=== PATIENT | male | born 1945 | race Caucasian/White ===

== ENCOUNTER 2016-04-16 02:51 | Inpatient (IN) | payer MEDICARE, MEDICAID ==
[2016-04-16] VITALS (20 sets, daily range): BP systolic 94–126; BP diastolic 44–68; PULSE 92–102; RESP 18–30; TEMP 98.1–98.7; O2SAT 94–100
[~2016-04-16] VITALS: Ht 167.6 cm; Wt 67.2 kg
[~2016-04-16 02:51] MED LIST: BENZ100 PO; DUONI NEB; GABA100C4 PO; LACT10SO27 PO; LEVE500 PO; LISI5 PO; OMEP20TA PO; OXYC1SOL5 PO; PARO40TA PO; SARNLOT TOP; SENN8.6T19 PO; STRETAB PO; TAMS0.4C4 PO; XYZA5TAB2 PO; [UNRECOGNIZED DRUG - CODE] EX
[2016-04-16] MEDS ORDERED: SODIUM CHLORIDE 0.9% FLUSH 5 ML FLUSH IVF PRN (03:00)
[2016-04-16] MEDS ORDERED: cefTRIAXone INJ 1,000 MG in SODIUM CHLORIDE 0.9% INJ 100 ML IV ONE (03:00)
[2016-04-16] MEDS ORDERED: AZITHROMYCIN 250 MG TAB PO ONE (03:00)
[2016-04-16] MEDS ORDERED: FUROSEMIDE 40 MG/4 ML VIAL IVP ONE (03:00)
[2016-04-16 03:18] LABS: BLOOD GAS BASE EXCESS -1.9 mmol/L (-2-2); BLOOD GAS CARBOXYHEMOGLOBIN 3.8 % (0-4); BLOOD GAS HCO3 24 mmol/L (22-26); BLOOD GAS METHEMOGLOBIN 2.2 % (0-2); BLOOD GAS O2 HGB SATURATION 94 % (90-100); BLOOD GAS OXYGEN CONTENT 6.8 Vol % (12.0-20.0); BLOOD GAS PCO2 53 mmHg (38-42); BLOOD GAS PO2 145 mmHG (61-120); BLOOD GAS TOTAL HGB 4.9 G/DL (12.0-16.0); TEMP CORR TO 98.6
[2016-04-16 03:19] LABS: CRITICAL VALUE YES; DRAW SITE RT RADIAL; FIO2 40 %; NUMBER OF ARTERIAL PUNCTURES 1; STAT YES; ULNAR PULSE PRESENT
[2016-04-16 03:20] LABS: OXYGEN DEVICE BiPAP
[2016-04-16 03:31] LABS: AUTOMATED NEUTROPHIL # 5.1 TH/MM3 (1.8-7.7); BASOPHIL % 0.2 % (0.0-2.0); EOSINOPHIL % 0.2 % (0.0-4.0); LYMPH % 3.7 % (9.0-44.0); LYMPHOCYTE # 0.3 TH/MM3 (1.0-4.8); MEAN CELL VOLUME 102.6 FL (80.0-100.0); MEAN CORPUSCULAR HEMOGLOBIN 31.5 PG (27.0-34.0); MEAN CORPUSCULAR HGB CONC 30.7 % (32.0-36.0); MONO % 20.4 % (0.0-8.0); NEUT % 75.5 % (16.0-70.0); PLATELET COUNT 42 TH/MM3 (150-450); RED BLOOD COUNT 1.68 MIL/MM3 (4.50-5.90); RED CELL DISTRIBUTION WIDTH 27.7 % (11.6-17.2); WHITE BLOOD COUNT 6.8 TH/MM3 (4.0-11.0)
[2016-04-16] MEDS ORDERED: PERC5TAB12 PO (03:41)
[2016-04-16] MEDS ORDERED: OMEP20TA PO (03:41)
[2016-04-16] MEDS ORDERED: PARO40TA2 PO (03:41)
[2016-04-16] MEDS ORDERED: LOPE2CAP PO (03:41)
[2016-04-16] MEDS ORDERED: LEVE500T8 PO (03:41)
[2016-04-16] MEDS ORDERED: GABA100C4 PO (03:41)
[2016-04-16] MEDS ORDERED: LACT10SO PO (03:41)
[2016-04-16] MEDS ORDERED: MIRTA15 PO (03:41)
[2016-04-16] MEDS ORDERED: MULT1TAB84 PO (03:41)
[2016-04-16] MEDS ORDERED: TAMS0.4C4 PO (03:41)
[2016-04-16] MEDS ORDERED: FERR325T PO (03:41)
[2016-04-16] MEDS ORDERED: LEVO500T3 PO (03:41)
[2016-04-16] MEDS ORDERED: IPRASOL INH (03:41)
[2016-04-16] MEDS ORDERED: PRED20 PO (03:41)
[2016-04-16] MEDS ORDERED: AZITHROMYCIN INJ 500 MG in SODIUM CHLOR 0.9% 250 ML INJ 250 ML IV ONE (03:45)
[2016-04-16 03:46] LABS: APTT (PATIENT) 27.6 SEC (24.3-30.1); INTERNATIONAL NORMALIZED RATIO 1.2 RATIO; PROTHROMBIN TIME - PATIENT 13.3 SEC (9.8-11.6)
[2016-04-16 03:51] LABS: HEMO FLAGS AUTO DIFF
[2016-04-16 03:52] LABS: ANION GAP 8 MEQ/L (5-15); BICARBONATE 25.8 MEQ/L (21.0-32.0); BLOOD UREA NITROGEN 50 MG/DL (7-18); CHLORIDE 108 MEQ/L (98-107); GLOMERULAR FILTRATION RATE 48 ML/MIN (>89); HEMATOCRIT 17.2 % (39.0-51.0); MAGNESIUM 2.1 MG/DL (1.5-2.5); POTASSIUM 5.1 MEQ/L (3.5-5.1); SODIUM (NA) 142 MEQ/L (136-145)
--- NOTE | 2016-04-16 03:53 | RADRPT ---
EXAM DATE/TIME: 04/16/2016 03:13 [facility] COMPARISON: CT ABDOMEN & PELVIS W/O CONTRAST, November 10, 2014, 17:50. CHEST SINGLE AP, October 21, 2015, 18:28 . INDICATIONS : Shortness of breath. MEDICAL HISTORY : Hypertension. Renal insufficiency, chronic. SURGICAL HISTORY : None. ENCOUNTER: Initial ACUITY: 1 day PAIN SCORE: Non-responsive. LOCATION: Bilateral chest FINDINGS: There is blunting of the left lateral costophrenic angle and left basilar opacity. Cardiomegaly. Righ t lung is clear. Degenerative changes of the spine. CONCLUSION: Left basilar opacity is stable and felt to represent scarring and atelectasis. Javier Clarke MD on April 16, 2016 at 3:50 Board Certified Radiologist. This report was verified electronically.
[2016-04-16] MEDS ORDERED: SODIUM CHLOR 0.9% 250 ML INJ 250 ML IV ONE (04:00)
[2016-04-16 04:12] LABS: OVALOCYTES 3+ (NORMAL); PLATELET ESTIMATE SMEAR LOW (NORMAL); PLATELET MORPHOLOGY NORMAL (NORMAL); SCAN/DIFF AUTO DIFF CONFIRMED
--- NOTE | 2016-04-16 05:29 | PD ---
HPI Chief Complaint: Respiratory Distress Time Seen by Provider: 03:00 Travel History International Travel<30 days: No Contact w/Intl Traveler<30days: No Traveled to known affect area: No History of Present Illness HPI The patient 70 years old. He arrives by EMS on CPAP. He was found essentially unresponsive at his assisted living facility. His O2 sats on room air were in the 80s evidently. History is limited to the documentation from the assisted living facility. He has a DNR. History of myelodysplastic syndrome. He follows with Dr. Cheema of oncology. O2 sats improved to the 90s on CPAP. PFSH Past Medical History Arthritis: Yes Asthma: Yes Autoimmune Disease: No Blood Disorders: No Depression: Yes Heart Rhythm Problems: No Cancer: No Cardiovascular Problems: No High Cholesterol: Yes Chest Pain: No Congestive Heart Failure: No Cerebrovascular Accident: No Diabetes: No Diminished Hearing: No Endocrine: No Gastrointestinal Disorders: No GERD: No Glaucoma: No Genitourinary: No Headaches: No Hepatitis: No Hiatal Hernia: No Hypertension: Yes Immune Disorder: No Kidney Stones: No Musculoskeletal: No Neurologic: Yes (SEIZURES) Psychiatric: No Reproductive: No Respiratory: No Immunizations Current: Yes Myocardial Infarction: No Renal Failure: Yes (KIDNEY STONES ) Seizures: Yes Sickle Cell Disease: No Sleep Apnea: No Thyroid Disease: No Ulcer: No Tetanus Vaccination: Unknown Influenza Vaccination: Yes Past Surgical History Abdominal Surgery: No Cardiac Surgery: No Ear Surgery: No Endocrine Surgery: No Eye Surgery: No Genitourinary Surgery: No Gynecologic Surgery: No Neurologic Surgery: No Oral Surgery: No Thoracic Surgery: Yes (EMERGENCY TRACHEOSTOMY, unknown date) Other Surgery: Yes (L SHOULDER) Social History Alcohol Use: Yes (OCCASIONALLY) Tobacco Use: No Substance Use: No Allergies-Medications (Allergen,Severity, Reaction): Coded Allergies: Penicillin (Verified Allergy, Severe, 04/16/16) Reported Meds & Prescriptions Reported Meds & Active Scripts Active Reported Loperamide (Loperamide HCl) 2 Mg Cap 2 Mg PO DIRECTED PRN One capsule after each loose stool. Not to exceed 8 capsules per day. Duoneb (Ipratropium-Albuterol Neb) 0.5-2.5 Mg/3 Ml Neb 1 Nebule INH DAILY Prednisone 20 Mg Tab 20 Mg PO DIRECTED 40 MG twice a day x 3 days, then 20 MG daily x 3 days, then 10 MG daily x 3 days Levofloxacin 500 Mg Tab 500 Mg PO DAILY Paroxetine (Paroxetine HCl) 40 Mg Tab 40 Mg PO DAILY Levetiracetam 500 Mg Tab 500 Mg PO BID Gabapentin 100 Mg Cap 100 Mg PO HS Multivitamin Adults (Multiple Vitamins W/ Minerals) 1 Tab 1 Tab PO DAILY Omeprazole 20 Mg Tab 20 Mg PO DAILY Tamsulosin (Tamsulosin HCl) 0.4 Mg Cap 0.4 Mg PO HS Mirtazapine 15 Mg Tab 15 Mg PO HS Ferrous Sulfate 325 Mg Tab 325 Mg PO DAILY Lactulose Liq (Lactulose) 10 Gm/15 Ml Soln 15 Ml PO Q6H PRN Percocet (Oxycodone-Acetaminophen) 5-325 mg Tab 1 Tab PO Q6H PRN Review of Systems ROS Limitations: Clinical Condition Physical Exam Narrative GENERAL:70-year-old male moderate distress on CPAP SKIN: Warm and dry. HEAD: Atraumatic. Normocephalic. EYES: Pupils equal and round. No scleral icterus. No injection or drainage. ENT: No nasal bleeding or discharge. Mucous membranes pink and moist. NECK: Trachea midline. No JVD. CARDIOVASCULAR: Regular rate and rhythm. No murmur appreciated. RESPIRATORY: No accessory muscle use. Clear to auscultation. Breath sounds equal bilaterally. GASTROINTESTINAL: Abdomen soft, non-tender, nondistended. Hepatic and splenic margins not palpable. MUSCULOSKELETAL: No obvious deformities. No clubbing. No cyanosis. No edema. NEUROLOGICAL: Responsive to to pain and loud voice. Non-verbal in ER. PSYCHIATRIC: Appropriate mood and affect; insight and judgment normal. Data Data Last Documented VS Vital Signs Date Time Temp Pulse Resp B/P Pulse Ox O2 Delivery O2 Flow Rate FiO2 04/16/16 04:11 97 24 94/44 100 CPAP 40 04/16/16 03:27 98.5 Orders Complete Blood Count With Diff (04/16/16 03:00) Basic Metabolic Panel (Bmp) (04/16/16 03:00) B-Type Natriuretic Peptide (04/16/16 03:00) Act Partial Throm Time (Ptt) (04/16/16 03:00) Prothrombin Time / Inr (Pt) (04/16/16 03:00) Magnesium (Mg) (04/16/16 03:00) Troponin I (04/16/16 03:00) Arterial Blood Gas (Abg) (04/16/16 03:00) Blood Culture (04/16/16 03:00) Iv Access Insert/Monitor (04/16/16 03:00) Ecg Monitoring (04/16/16 03:00) Oximetry (04/16/16 03:00) Oxygen Administration (04/16/16 03:00) Chest, Single Ap (04/16/16 03:00) Sodium Chloride 0.9% Flush (Ns Flush) (04/16/16 03:00) Furosemide Inj (Lasix Inj) (04/16/16 03:00) Resp Bipap / Cpap Non Invas Vt (04/16/16 03:00) Ceftriaxone Inj (Rocephin Inj) (04/16/16 03:00) Azithromycin (Zithromax) (04/16/16 03:00) Azithromycin Inj (Zithromax Inj) (04/16/16 03:45) Type And Screen (04/16/16 04:00) Red Blood Cells (Rbc) (04/16/16 04:00) Blood Product Administration .UPON TRANSFUSION (04/16/16 04:00) Sodium Chlor 0.9% 250 Ml Inj (Ns 250 Ml (04/16/16 04:00) Arterial Blood Gas (Abg) (04/16/16 ) Lactic Acid (04/16/16 05:36) Admit Order (Ed Use Only) (04/16/16 06:05) Labs Laboratory Tests Test 04/16/16 04/16/16 04/16/16 03:10 03:20 04:00 Blood Gas Puncture Site RT RADIAL Blood Gas Patient Temperature 98.6 Blood Gas HCO3 24 mmol/L Blood Gas Base Excess -1.9 mmol/L Blood Gas Oxygen Saturation 94 % Arterial Blood pH 7.28 Arterial Blood Partial 53 mmHg Pressure CO2 Arterial Blood Partial 145 mmHG Pressure O2 Arterial Blood Oxygen Content 6.8 Vol % Arterial Blood 3.8 % Carboxyhemoglobin Arterial Blood Methemoglobin 2.2 % Blood Gas Hemoglobin 4.9 G/DL Oxygen Delivery Device BiPAP Blood Gas Inspired Oxygen 40 % White Blood Count 6.8 TH/MM3 Red Blood Count 1.68 MIL/MM3 Hemoglobin 5.3 GM/DL Hematocrit 17.2 % Mean Corpuscular Volume 102.6 FL Mean Corpuscular Hemoglobin 31.5 PG Mean Corpuscular Hemoglobin 30.7 % Concent Red Cell Distribution Width 27.7 % Platelet Count 42 TH/MM3 Mean Platelet Volume 10.1 FL Neutrophils (%) (Auto) 75.5 % Lymphocytes (%) (Auto) 3.7 % Monocytes (%) (Auto) 20.4 % Eosinophils (%) (Auto) 0.2 % Basophils (%) (Auto) 0.2 % Neutrophils # (Auto) 5.1 TH/MM3 Lymphocytes # (Auto) 0.3 TH/MM3 Monocytes # (Auto) 1.4 TH/MM3 Eosinophils # (Auto) 0.0 TH/MM3 Basophils # (Auto) 0.0 TH/MM3 CBC Comment AUTO DIFF Differential Comment AUTO DIFF CONFIRMED Platelet Estimate LOW Platelet Morphology Comment NORMAL Ovalocytes 3+ Prothrombin Time 13.3 SEC Prothromb Time International 1.2 RATIO Ratio Activated Partial 27.6 SEC Thromboplast Time Sodium Level 142 MEQ/L Potassium Level 5.1 MEQ/L Chloride Level 108 MEQ/L Carbon Dioxide Level 25.8 MEQ/L Anion Gap 8 MEQ/L Blood Urea Nitrogen 50 MG/DL Creatinine 1.44 MG/DL Estimat Glomerular Filtration 48 ML/MIN Rate Random Glucose 159 MG/DL Calcium Level 8.3 MG/DL Magnesium Level 2.1 MG/DL Troponin I LESS THAN 0.02 NG/ML B-Type Natriuretic Peptide 136 PG/ML Blood Type O POSITIVE Antibody Screen NEGATIVE MDM Medical Decision Making Medical Screen Exam Complete: Yes Emergency Medical Condition: Yes Medical Record Reviewed: Yes Differential Diagnosis anemia, chf, pna, renal failure, sepsis Narrative Course CBC & BMP Diagram 04/16/16 03:20 Tn < 0.02 BNP 136 EKG reveals a sinus tachycardia with a rate of 104 normal axis and intervals Last 24 hours Impressions Chest X-Ray 04/16/16 0300 Signed Impressions: Service Date/Time: Saturday, April 16, 2016 03:13 - CONCLUSION: Left basilar opacity is stable and felt to represent scarring and atelectasis. Javier Clarke MD Patient received Rocephin and azithromycin. 2 units packed cells ordered. Anemia is likely secondary to myelodysplastic syndrome. The O2 sat is renal 100 % on 40% FiO2 BiPAP. Blood pressure systolic has been about 100-110 throughout ER course. The patient will be admitted to the [facility]. Case discussed with Robert Zimmerman. Diagnosis Primary Impression: Anemia Qualified Code: D64.9 - Anemia, unspecified type Additional Impression: Altered mental status Qualified Code: R41.82 - Altered mental status, unspecified altered mental status type Admitting Information Admitting Physician Requests: Admit Kael Echols MD Apr 16, 2016 05:29
[2016-04-16] MEDS ORDERED: NALOXONE HCL 0.4 MG/ML AMP IV PRN (06:15)
[2016-04-16] MEDS ORDERED: ONDANSETRON HCL 4 MG/2 ML VIAL IVP PRN (06:15)
[2016-04-16] MEDS ORDERED: BISACODYL 10 MG SUPP PR PRN (06:15)
[2016-04-16] MEDS ORDERED: SODIUM CHLORIDE 0.9% FLUSH 5 ML FLUSH FLUSH PRN (06:15)
[2016-04-16] MEDS ORDERED: ACETAMINOPHEN 325 MG TAB PO PRN (06:15)
[2016-04-16] MEDS ORDERED: SENNOSIDES 8.6 MG TAB PO PRN (06:15)
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
[2016-04-16] MEDS ORDERED: RESP: ALBUTEROL 2.5 MG/IPRATROPIUM 0.5 MG NEB (PRN) NEB (09:00)
[2016-04-16] MEDS: PANTOPRAZOLE SOD 40 MG DELAYED RELEASE TAB PO SCH (09:00)
[2016-04-16 09:14] LABS: BLOOD GAS BASE EXCESS 0.5 mmol/L (-2-2); BLOOD GAS CARBOXYHEMOGLOBIN 3.4 % (0-4); BLOOD GAS HCO3 26 mmol/L (22-26); BLOOD GAS METHEMOGLOBIN 2.1 % (0-2); BLOOD GAS O2 HGB SATURATION 94 % (90-100); BLOOD GAS OXYGEN CONTENT 6.9 Vol % (12.0-20.0); BLOOD GAS PCO2 53 mmHg (38-42); BLOOD GAS PO2 125 mmHG (61-120); BLOOD GAS TOTAL HGB 4.9 G/DL (12.0-16.0); CRITICAL VALUE YES; TEMP CORR TO 98.6
[2016-04-16 09:15] LABS: DRAW SITE LT RADIAL; FIO2 40 %; NUMBER OF ARTERIAL PUNCTURES 1; OXYGEN DEVICE NPPV; STAT YES; ULNAR PULSE PRESENT; VENT SETTINGS IPAP18/EPEP8
[2016-04-16] MEDS: metroNIDAZOLE 500 MG INJ 100 ML IV SCH ×2 (10:26→17:41)
[2016-04-16] MEDS: levETIRAcetam INJ 500 MG in SODIUM CHLORIDE 0.9% INJ 100 ML IV SCH ×2 (10:26→20:10)
[2016-04-16] MEDS: SODIUM CHLORIDE 0.9% FLUSH 5 ML FLUSH FLUSH SCH ×2 (10:27→20:09)
[2016-04-16] MEDS: methylPREDNISolone SOD SUCC 40 MG/1 ML VIAL IV PUSH SCH ×3 (10:27→17:41)
[2016-04-16] MEDS ORDERED: RESP: ALBUTEROL 2.5 MG/IPRATROPIUM 0.5 MG NEB (SCH) NEB (12:00)
[2016-04-16] MEDS: RESP: ALBUTEROL 2.5 MG/IPRATROPIUM 0.5 MG NEB (SCH) NEB ×2 (15:46→20:45)
--- NOTE | 2016-04-16 17:13 | EKG ---
Date Performed: 04/16/2016 Time Performed: 03:01:31 PTAGE: 70 years EKG: SINUS TACHYCARDIA LOW QRS VOLTAGE IN EXTREMITY LEADS Since previous tracing, no significant change noted ABNORMAL RHYTHM ECG PREVIOUS TRACING : 01/28/2015 09.56 DOCTOR: David Gomez Interpretating Date/Time 04/16/2016 17:11:30
[2016-04-16] MEDS: FUROSEMIDE 20 MG/2 ML VIAL IV PUSH SCH (17:41)
[2016-04-16] MEDS ORDERED: CHLORHEXIDINE GLUCONATE 2 % 1 PACK (2 CLOTHS)(extra cloths) TOP PRN (18:45)
[2016-04-16 21:32] LABS: HEMATOCRIT 23.1 % (39.0-51.0); MEAN CELL VOLUME 94.4 FL (80.0-100.0); MEAN CORPUSCULAR HEMOGLOBIN 30.4 PG (27.0-34.0); MEAN CORPUSCULAR HGB CONC 32.2 % (32.0-36.0); PLATELET COUNT 25 TH/MM3 (150-450); RED BLOOD COUNT 2.45 MIL/MM3 (4.50-5.90); RED CELL DISTRIBUTION WIDTH 22.8 % (11.6-17.2); WHITE BLOOD COUNT 5.4 TH/MM3 (4.0-11.0)
[2016-04-16 21:33] LABS: REVIEW FLAG FINAL
[2016-04-17] VITALS (14 sets, daily range): BP systolic 111–118; BP diastolic 52–58; PULSE 87–115; RESP 19–25; TEMP 98.2–99.2; O2SAT 95–98
[2016-04-17] MEDS: metroNIDAZOLE 500 MG INJ 100 ML IV SCH ×3 (00:10→17:22)
[2016-04-17] MEDS: methylPREDNISolone SOD SUCC 40 MG/1 ML VIAL IV PUSH SCH ×4 (00:10→21:02)
[2016-04-17] MEDS: CHLORHEXIDINE GLUCONATE 2 % 1 PACK (2 CLOTHS)(taper/protocol) TOP SCH (04:00)
--- NOTE | 2016-04-17 05:26 | RADRPT ---
EXAM DATE/TIME: 04/17/2016 03:44 [facility] COMPARISON: CHEST SINGLE AP, April 16, 2016, 3:13. INDICATIONS : Shortness of breath. MEDICAL HISTORY : Hypertension. Renal insufficiency, chronic. SURGICAL HISTORY : None. ENCOUNTER: Subsequent ACUITY: 2 days PAIN SCORE: Non-responsive. LOCATION: Bilateral chest FINDINGS: There is a small left effusion and left lower lobe airspace disease. Minimal right basilar atelectasi s and airspace disease. Cardiomegaly. CONCLUSION: Small left effusion and bilateral airspace disease. Javier Clarke MD on April 17, 2016 at 5:24 Board Certified Radiologist. This report was verified electronically.
[2016-04-17 06:09] LABS: AUTOMATED NEUTROPHIL # 3.9 TH/MM3 (1.8-7.7); BASOPHIL % 0.5 % (0.0-2.0); EOSINOPHIL % 0.4 % (0.0-4.0); HEMATOCRIT 22.9 % (39.0-51.0); LYMPH % 11.7 % (9.0-44.0); LYMPHOCYTE # 0.6 TH/MM3 (1.0-4.8); MEAN CELL VOLUME 95.7 FL (80.0-100.0); MEAN CORPUSCULAR HEMOGLOBIN 30.5 PG (27.0-34.0); MEAN CORPUSCULAR HGB CONC 31.9 % (32.0-36.0); MONO % 8.2 % (0.0-8.0); NEUT % 79.2 % (16.0-70.0); PLATELET COUNT 36 TH/MM3 (150-450); RED BLOOD COUNT 2.39 MIL/MM3 (4.50-5.90); RED CELL DISTRIBUTION WIDTH 23.2 % (11.6-17.2); WHITE BLOOD COUNT 4.9 TH/MM3 (4.0-11.0)
[2016-04-17 06:25] LABS: BICARBONATE 27.9 MEQ/L (21.0-32.0); POTASSIUM 4.7 MEQ/L (3.5-5.1)
[2016-04-17 07:05] LABS: HEMO FLAGS AUTO DIFF
[2016-04-17 07:10] LABS: PLATELET ESTIMATE SMEAR LOW (NORMAL); PLATELET MORPHOLOGY NORMAL (NORMAL); SCAN/DIFF AUTO DIFF CONFIRMED
[2016-04-17 07:12] LABS: KERATOCYTES 1+ (NORMAL); OVALOCYTES 1+ (NORMAL)
[2016-04-17] MEDS: RESP: ALBUTEROL 2.5 MG/IPRATROPIUM 0.5 MG NEB (SCH) NEB ×4 (07:43→20:50)
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
[2016-04-17] MEDS: cefTRIAXone INJ 1,000 MG in SODIUM CHLORIDE 0.9% INJ 100 ML IV SCH (08:14)
[2016-04-17] MEDS: SODIUM CHLORIDE 0.9% FLUSH 5 ML FLUSH FLUSH SCH ×2 (08:14→21:02)
[2016-04-17] MEDS: FUROSEMIDE 20 MG/2 ML VIAL IV PUSH SCH ×2 (08:15→17:22)
[2016-04-17] MEDS: PANTOPRAZOLE SOD 40 MG DELAYED RELEASE TAB PO SCH (08:15)
[2016-04-17] MEDS: levETIRAcetam INJ 500 MG in SODIUM CHLORIDE 0.9% INJ 100 ML IV SCH ×2 (08:25→21:02)
[2016-04-17] MEDS: AZITHROMYCIN INJ 500 MG in SODIUM CHLOR 0.9% 250 ML INJ 250 ML IV SCH (10:00)
--- NOTE | 2016-04-17 12:47 | HHI.PR ---
Subjective Remarks Awake and on a N/C . Will have transfusion today. Hgb 7.3. O2 sat 96. Objective Vital Signs Date Time Temp Pulse Resp B/P Pulse Ox O2 Delivery O2 Flow Rate FiO2 04/17/16 12:00 98.2 107 25 117/58 98 04/17/16 10:00 107 04/17/16 08:00 98.7 97 19 118/57 98 04/17/16 08:00 97 04/17/16 07:43 96 Nasal Cannula 3.00 04/17/16 06:00 96 04/17/16 04:00 97 04/17/16 04:00 99.1 94 20 111/56 97 04/17/16 02:00 101 04/17/16 00:00 103 04/17/16 00:00 98.2 103 24 113/52 95 04/16/16 22:00 101 04/16/16 20:48 94 Nasal Cannula 3.00 04/16/16 20:00 102 04/16/16 20:00 98.7 102 22 119/56 96 04/16/16 18:00 98.1 98 24 115/56 98 04/16/16 18:00 97 04/16/16 16:00 98 04/16/16 16:00 98.5 98 24 113/68 100 04/16/16 15:06 96 18 106/49 100 BiPAP 04/16/16 13:45 92 110/49 100 04/16/16 13:10 100 Venturi Mask 50 I/O 04/16/16 04/16/16 04/16/16 04/17/16 04/17/16 04/17/16 07:00 15:00 23:00 07:00 15:00 23:00 Intake Total 250 ml 218 ml 128 ml Output Total 3050 ml 700 ml Balance 250 ml -2832 ml -572 ml Intake Oral 0 ml IV Total 218 ml 128 ml Packed Cells 250 ml Output Urine Total 3050 ml 700 ml # Voids 0 # Bowel Movements 0 0 Result Diagram: 04/17/16 0458 04/17/16 0458 Objective Remarks Physical Exam GENERAL: This is an elderly male, pale and Chronically ill-appearing SKIN: No rashes, ecchymoses or lesions. Cool and dry. HEAD: Atraumatic. Normocephalic. No temporal or scalp tenderness. EYES: Pupils equal round and reactive. Extraocular motions intact. No scleral icterus. No injection or drainage. ENT: Nose without bleeding, purulent drainage or septal hematoma. Throat without erythema, tonsillar hypertrophy or exudate. Uvula midline. Airway patent. NECK: Trachea midline. No JVD or lymphadenopathy. Supple, nontender, no meningeal signs. CARDIOVASCULAR: Regular rate and rhythm without murmurs, gallops, or rubs. RESPIRATORY: coarse rhonchi as well as by basilar Rales with mild expiratory wheezing. GASTROINTESTINAL: Abdomen soft, non-tender, nondistended. No hepato-splenomegaly , or palpable masses. No guarding. MUSCULOSKELETAL: Extremities without clubbing, cyanosis. Bilateral lower extremities with trace edema. Pedal pulses 2+ bilaterally. No joint tenderness , effusion, or edema noted. No calf tenderness. Negative Homans sign bilaterally. NEUROLOGICAL: Patient opens eyes to voice, unable to assess orientation. Moves all extremities, no focal deficits noted. Assessment and Plan Assessment and Plan Physical Exam Assessment and Plan Problem List: (1) Sepsis (2) Respiratory failure (3) Myelodysplastic syndrome (4) Symptomatic anemia (5) Thrombocytopenia (6) Altered mental status (7) Pneumonia (8) Anemia (9) COPD exacerbation (10) Seizure (11) Acute kidney injury superimposed on CKD (12) Fluid overload Plan : 1. O2 at 3 L. 2. Nebs qid , duoneb. 3. Cont Rocephin and Zithro IV. 4. Transfusion with 2 U packed red cells. 5. Chest X ray ,CBC in am. 6. Transfer to [facility]. Tao Diaz MD Apr 17, 2016 12:46
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
--- NOTE | 2016-04-17 14:00 | HHI.PR ---
Subjective Remarks pt is alert and oriented to place and person dont know why he is exactly here feels tired and weak no other complaint no a good historian ROS for 12 point system is unremarkable otherwise Objective Objective Results - Vital Signs Date Time Temp Pulse Resp B/P Pulse Ox O2 Delivery O2 Flow Rate FiO2 04/17/16 12:00 98.2 107 25 117/58 98 04/17/16 12:00 115 04/17/16 10:00 107 04/17/16 08:00 98.7 97 19 118/57 98 04/17/16 08:00 97 04/17/16 07:43 96 Nasal Cannula 3.00 04/17/16 06:00 96 04/17/16 04:00 97 04/17/16 04:00 99.1 94 20 111/56 97 04/17/16 02:00 101 04/17/16 00:00 103 04/17/16 00:00 98.2 103 24 113/52 95 04/16/16 22:00 101 04/16/16 20:48 94 Nasal Cannula 3.00 04/16/16 20:00 102 04/16/16 20:00 98.7 102 22 119/56 96 04/16/16 18:00 98.1 98 24 115/56 98 04/16/16 18:00 97 04/16/16 16:00 98 04/16/16 16:00 98.5 98 24 113/68 100 04/16/16 15:06 96 18 106/49 100 BiPAP I/O 04/16/16 04/16/16 04/16/16 04/17/16 04/17/16 04/17/16 07:00 15:00 23:00 07:00 15:00 23:00 Intake Total 250 ml 218 ml 128 ml Output Total 3050 ml 700 ml Balance 250 ml -2832 ml -572 ml Intake Oral 0 ml IV Total 218 ml 128 ml Packed Cells 250 ml Output Urine Total 3050 ml 700 ml # Voids 0 # Bowel Movements 0 0 Result Diagram: 04/17/16 0458 04/17/16 0458 Imaging Last Impressions Chest X-Ray 04/16/16 0300 Signed Impressions: Service Date/Time: Saturday, April 16, 2016 03:13 - CONCLUSION: Left basilar opacity is stable and felt to represent scarring and atelectasis. Javier Clarke MD Other Results Laboratory Tests Test 04/16/16 04/16/16 04/17/16 15:30 20:59 04:58 Nasal Screen MRSA (PCR) NEGATIVE White Blood Count 5.4 4.9 Red Blood Count 2.45 2.39 Hemoglobin 7.4 7.3 Hematocrit 23.1 22.9 Mean Corpuscular Volume 94.4 95.7 Mean Corpuscular Hemoglobin 30.4 30.5 Mean Corpuscular Hemoglobin 32.2 31.9 Concent Red Cell Distribution Width 22.8 23.2 Platelet Count 25 36 Mean Platelet Volume 9.4 10.7 Neutrophils (%) (Auto) 79.2 Lymphocytes (%) (Auto) 11.7 Monocytes (%) (Auto) 8.2 Eosinophils (%) (Auto) 0.4 Basophils (%) (Auto) 0.5 Neutrophils # (Auto) 3.9 Lymphocytes # (Auto) 0.6 Monocytes # (Auto) 0.4 Eosinophils # (Auto) 0.0 Basophils # (Auto) 0.0 CBC Comment AUTO DIFF Differential Comment AUTO DIFF CONFIRMED Platelet Estimate LOW Platelet Morphology Comment NORMAL Ovalocytes 1+ Keratocytes 1+ Sodium Level 145 Potassium Level 4.7 Chloride Level 108 Carbon Dioxide Level 27.9 Anion Gap 9 Blood Urea Nitrogen 60 Creatinine 1.33 Estimat Glomerular Filtration 53 Rate Random Glucose 148 Calcium Level 8.1 Date/Time Procedure Status Source Growth 04/16/16 03:20 Aerobic Blood Culture - Preliminary Resulted Blood Peripheral NO GROWTH IN 1 DAY 04/16/16 03:20 Anaerobic Blood Culture - Preliminary Resulted Blood Peripheral NO GROWTH IN 1 DAY Physical Exam Physical Exam GENERAL: This is an elderly male, currently on nasal cannula oxygen. Chronically weak and ill-appearing SKIN: No rashes, ecchymoses or lesions. Cool and dry. HEAD: Atraumatic. Normocephalic. No temporal or scalp tenderness. EYES: Pupils equal round and reactive. Extraocular motions intact. No scleral icterus. No injection or drainage. ENT: Nose without bleeding, purulent drainage or septal hematoma. Throat without erythema, tonsillar hypertrophy or exudate. Uvula midline. Airway patent. NECK: Trachea midline. No JVD or lymphadenopathy. Supple, nontender, no meningeal signs. CARDIOVASCULAR: Regular rate and rhythm without murmurs, gallops, or rubs. RESPIRATORY: coarse rhonchi as well as by basilar Rales with mild expiratory wheezing. GASTROINTESTINAL: Abdomen soft, non-tender, nondistended. No hepato-splenomegaly , or palpable masses. No guarding. MUSCULOSKELETAL: Extremities without clubbing, cyanosis. Bilateral lower extremities with trace edema. Pedal pulses 2+ bilaterally. No joint tenderness , effusion, or edema noted. No calf tenderness. Negative Homans sign bilaterally. NEUROLOGICAL: Patient opens eyes to voice, unable to assess orientation. Moves all extremities, no focal deficits noted. A/P Assessment and Plan (1) Sepsis (2) Respiratory failure (3) Myelodysplastic syndrome (4) Symptomatic anemia (5) Thrombocytopenia (6) Altered mental status (7) Pneumonia (8) Anemia (9) COPD exacerbation (10) Seizure (11) Acute kidney injury superimposed on CKD (12) Fluid overload Plan 70-year-old elderly male from a local long-term, history of myelodysplastic syndrome, frequent blood transfusions, seizure disorder. Patient was brought in via EMS after he was found unresponsive, was hypoxic sats 80%. He was found severely anemic, hemoglobin 5.3, hematocrit 17.2. Chest x-ray showed left basilar opacity. Was noted with acute on chronic renal injury. Acute respiratory failure, history of COPD, asthma -Continue with oxygen to keep oxygen saturation above 92% -Labs reviewed -Solu-Medrol 40 mg IV every 6 -Pulmonary consultation appreciated -Patient is a DO NOT RESUSCITATE Sepsis, possibly pulmonary source Continue with empiric antibiotics We will avoid IV fluids at this time, patient is noted with increase rales Follow cultures --Lasix Acute on chronic renal injury, possibly secondary to sepsis, dehydration Patient received IV fluids BMP in am Possible fluid overload We'll give Lasix 20 mg IV twice a day, monitor blood pressure closely Monitor intake and output We will obtain 2-D echo, last echo was in 2014, EF was 55%. Anemia, history of myelodysplastic syndrome Continue with blood transfusion, follow up H&H --Discussed with Dr. Cheema . Appreciate consultation. As discussed will transfuse 2 units of PRBC today Seizure disorder Continue Keppra, we will change to IV form -Seizure precautions Plan for hospice consult. As discussed with hematology. His overall prognosis is poor. Discussed with power of oil recovery unit operator. Who is also leaning toward hospice. SCDs for DVT prophylaxis Protonix for GI prophylaxis Condition guarded, patient has a DO NOT RESUSCITATE, appropriate order has been entered Plan of care discussed with RN. Further management of the patient will be dependent on the hospital course Overall is stable enough to transfer to floor Daniel Watson MD Apr 17, 2016 14:00
[2016-04-17] MEDS ORDERED: SODIUM CHLOR 0.9% 250 ML INJ 250 ML IV ONE (14:15)
[2016-04-17] MEDS ORDERED: FUROSEMIDE 20 MG/2 ML VIAL IV ONE (14:15)
--- NOTE | 2016-04-17 15:27 | EC ---
Study Study Date:04/17/2016 STUDY CONCLUSIONS SUMMARY - Left ventricle: The cavity size was normal. Wall thickness was normal. Systolic function was vigorous. The estimated ejection fraction was in the range of 65% to 70%. Wall motion was normal; there were no regional wall motion abnormalities. - Aortic valve: Trace regurgitation. - Tricuspid valve: Mild regurgitation. - Pericardium, extracardiac: A trivial pericardial effusion was identified. If LV function is below 40, please consider prescribing an ACEI or ARB or document rationale for non-use. PROCEDURE DATA STUDY STATUS: Elective. Procedure: Transthoracic echocardiography. Image quality was good. Scanning was performed from the parasternal, apical, and subcostal acoustic windows. Study completion: The patient tolerated the procedure well. Transthoracic echocardiography. M-mode, complete 2D, complete spectral Doppler, and color Doppler. Patient status: Inpatient. CARDIAC ANATOMY LEFT VENTRICLE: The cavity size was normal. Wall thickness was normal. Systolic function was vigorous. The estimated ejection fraction was in the range of 65% to 70%. Wall motion was normal; there were no regional wall motion abnormalities. AORTIC VALVE: Trileaflet; normal thickness leaflets. Doppler: Transvalvular velocity was within the normal range. There was no stenosis. Trace regurgitation. Peak gradient: 18mm Hg (S). AORTA: Aortic root: The aortic root was normal in size. MITRAL VALVE: Structurally normal valve. Doppler: Transvalvular velocity was within the normal range. There was no evidence for stenosis. No regurgitation. Peak gradient: 3mm Hg (D). LEFT ATRIUM: The atrium was normal in size. RIGHT VENTRICLE: The cavity size was normal. Wall thickness was normal. PULMONIC VALVE: Doppler: Transvalvular velocity was within the normal range. There was no evidence for stenosis. No regurgitation. TRICUSPID VALVE: Structurally normal valve. Doppler: Transvalvular velocity was within the normal range. Mild regurgitation. PULMONARY ARTERY: The main pulmonary artery was normal-sized. Systolic pressure was within the normal range. RIGHT ATRIUM: The atrium was normal in size. PERICARDIUM: A trivial pericardial effusion was identified. SYSTEMIC VEINS: Inferior vena cava: The vessel was normal in size. BASIC MEASUREMENTS ADULT NORMAL Left ventricle LV internal dimension, ED, chordal level, 46.5 mm 43-52 PLAX LV internal dimension, ES, chordal level, 36.5 mm 23-38 PLAX Fractional shortening, chordal level, PLAX *22 % >29 LV posterior wall thickness, ED 8.34 mm IVS/LVPW ratio, ED 1.15 <1.3 Ventricular septum Septal thickness, ED 9.61 mm Left atrium Anterior-posterior dimension 30 mm Right ventricle RV internal dimension, ED, PLAX 22.9 mm 19-38 DOPPLER MEASUREMENTS ADULT NORMAL Aortic valve Peak velocity, S 210 cm/s Peak gradient, S 18 mm Hg Mitral valve Peak E-wave velocity 85.7 cm/s Peak A-wave velocity 127 cm/s Peak gradient, D 3 mm Hg Peak E/A ratio 0.7 Tricuspid valve Regurgitant peak velocity 347 cm/s Peak RV-RA gradient, S 48 mm Hg Maximal regurgitant velocity 347 cm/s LEGEND: Mean values are shown as u=mean value. Asterisk (*) barajas values outside specified normal range. Prepared and signed by Nikolas Ulloa [id number]
[2016-04-18] VITALS (14 sets, daily range): BP systolic 112–132; BP diastolic 55–89; PULSE 76–97; RESP 18–26; TEMP 98.4–99.5; O2SAT 93–99
[2016-04-18 05:46] LABS: HEMATOCRIT 28.6 % (39.0-51.0); MEAN CELL VOLUME 92.7 FL (80.0-100.0); MEAN CORPUSCULAR HEMOGLOBIN 30.7 PG (27.0-34.0); MEAN CORPUSCULAR HGB CONC 33.1 % (32.0-36.0); RED BLOOD COUNT 3.08 MIL/MM3 (4.50-5.90); WHITE BLOOD COUNT 4.2 TH/MM3 (4.0-11.0)
[2016-04-18 06:01] LABS: BICARBONATE 28.5 MEQ/L (21.0-32.0); POTASSIUM 4.2 MEQ/L (3.5-5.1)
[2016-04-18 06:06] LABS: REVIEW FLAG FINAL
[2016-04-18 06:08] LABS: PLATELET COUNT 18 TH/MM3 (150-450)
[2016-04-18] MEDS: RESP: ALBUTEROL 2.5 MG/IPRATROPIUM 0.5 MG NEB (SCH) NEB ×4 (08:00→20:11)
[2016-04-18] MEDS: cefTRIAXone INJ 1,000 MG in SODIUM CHLORIDE 0.9% INJ 100 ML IV SCH (08:57)
[2016-04-18] MEDS: metroNIDAZOLE 500 MG INJ 100 ML IV SCH ×2 (08:57→17:21)
[2016-04-18] MEDS: SODIUM CHLORIDE 0.9% FLUSH 5 ML FLUSH FLUSH SCH ×2 (08:58→23:21)
[2016-04-18] MEDS: FUROSEMIDE 20 MG/2 ML VIAL IV PUSH SCH ×2 (08:58→17:20)
[2016-04-18] MEDS: AZITHROMYCIN INJ 500 MG in SODIUM CHLOR 0.9% 250 ML INJ 250 ML IV SCH (08:59)
[2016-04-18] MEDS: PANTOPRAZOLE SOD 40 MG DELAYED RELEASE TAB PO SCH (08:59)
[2016-04-18] MEDS: levETIRAcetam INJ 500 MG in SODIUM CHLORIDE 0.9% INJ 100 ML IV SCH ×2 (09:06→23:22)
[2016-04-18] MEDS: methylPREDNISolone SOD SUCC 40 MG/1 ML VIAL IV PUSH SCH ×2 (13:52→23:21)
--- NOTE | 2016-04-18 15:32 | HHI.PR ---
Subjective Remarks pt is alert and oriented to place and person dont know why he is exactly here feels tired and weak No pain No nausea vomiting no shortness of breath no other complaint not a good historian ROS for 10 point system is unremarkable otherwise Objective Objective Results - Vital Signs Date Time Temp Pulse Resp B/P Pulse Ox O2 Delivery O2 Flow Rate FiO2 04/18/16 14:00 97 04/18/16 12:00 85 04/18/16 12:00 99.5 85 18 117/60 96 04/18/16 10:00 80 04/18/16 08:00 78 04/18/16 08:00 98.9 78 22 112/55 96 04/18/16 06:00 89 04/18/16 04:00 89 04/18/16 04:00 99.1 91 18 124/61 97 04/18/16 02:00 87 04/18/16 00:00 98.4 87 22 115/58 96 04/18/16 00:00 87 04/17/16 22:00 88 04/17/16 20:51 95 Nasal Cannula 4.00 04/17/16 20:00 99.2 87 22 115/58 96 04/17/16 20:00 87 04/17/16 18:00 99 04/17/16 16:00 98.4 96 19 117/57 97 04/17/16 16:00 96 I/O 04/17/16 04/17/16 04/17/16 04/18/16 04/18/16 04/18/16 07:00 15:00 23:00 07:00 15:00 23:00 Intake Total 128 ml 918 ml 715 ml 510 ml Output Total 700 ml 1400 ml 1850 ml 350 ml Balance -572 ml -482 ml -1135 ml 160 ml Intake Oral 320 ml 300 ml 250 ml IV Total 128 ml 598 ml 415 ml 260 ml Output Urine Total 700 ml 1400 ml 1850 ml 350 ml # Bowel Movements 0 Result Diagram: 04/18/1642704/18/16427 Imaging Last Impressions Chest X-Ray 04/16/16 0300 Signed Impressions: Service Date/Time: Saturday, April 16, 2016 03:13 - CONCLUSION: Left basilar opacity is stable and felt to represent scarring and atelectasis. Javier Clarke MD Other Results Laboratory Tests Test 04/18/16 04:28 White Blood Count 4.2 Red Blood Count 3.08 Hemoglobin 9.5 Hematocrit 28.6 Mean Corpuscular Volume 92.7 Mean Corpuscular Hemoglobin 30.7 Mean Corpuscular Hemoglobin 33.1 Concent Red Cell Distribution Width 18.0 Platelet Count 18 Mean Platelet Volume 10.6 Sodium Level 145 Potassium Level 4.2 Chloride Level 106 Carbon Dioxide Level 28.5 Anion Gap 11 Blood Urea Nitrogen 61 Creatinine 1.36 Estimat Glomerular Filtration 52 Rate Random Glucose 145 Calcium Level 8.0 Date/Time Procedure Status Source Growth 04/16/16 03:20 Aerobic Blood Culture - Preliminary Resulted Blood Peripheral NO GROWTH IN 2 DAYS 04/16/16 03:20 Anaerobic Blood Culture - Preliminary Resulted Blood Peripheral NO GROWTH IN 2 DAYS Physical Exam Physical Exam GENERAL: This is an elderly male, currently on nasal cannula oxygen. Chronically weak and ill-appearing SKIN: No rashes, ecchymoses or lesions. Cool and dry. HEAD: Atraumatic. Normocephalic. No temporal or scalp tenderness. EYES: Pupils equal round and reactive. Extraocular motions intact. No scleral icterus. No injection or drainage. ENT: Nose without bleeding, purulent drainage or septal hematoma. Throat without erythema, tonsillar hypertrophy or exudate. Uvula midline. Airway patent. NECK: Trachea midline. No JVD or lymphadenopathy. Supple, nontender, no meningeal signs. CARDIOVASCULAR: Regular rate and rhythm without murmurs, gallops, or rubs. RESPIRATORY: coarse rhonchi as well as by basilar Rales with mild expiratory wheezing. GASTROINTESTINAL: Abdomen soft, non-tender, nondistended. No hepato-splenomegaly , or palpable masses. No guarding. MUSCULOSKELETAL: Extremities without clubbing, cyanosis. Bilateral lower extremities with trace edema. Pedal pulses 2+ bilaterally. No joint tenderness , effusion, or edema noted. No calf tenderness. Negative Homans sign bilaterally. NEUROLOGICAL: Patient opens eyes to voice, unable to assess orientation. Moves all extremities, no focal deficits noted. A/P Assessment and Plan (1) Sepsis (2) Respiratory failure (3) Myelodysplastic syndrome (4) Symptomatic anemia (5) Thrombocytopenia (6) Altered mental status (7) Pneumonia (8) Anemia (9) COPD exacerbation (10) Seizure (11) Acute kidney injury superimposed on CKD (12) Fluid overload Plan 70-year-old elderly male from a local retirement, history of myelodysplastic syndrome, frequent blood transfusions, seizure disorder. Patient was brought in via EMS after he was found unresponsive, was hypoxic sats 80%. He was found severely anemic, hemoglobin 5.3, hematocrit 17.2. Chest x-ray showed left basilar opacity. Was noted with acute on chronic renal injury. Acute respiratory failure, history of COPD, asthma -Continue with oxygen to keep oxygen saturation above 92% -Labs reviewed -Solu-Medrol 40 mg IV every 6 -Pulmonary consultation appreciated -Patient is a DO NOT RESUSCITATE Sepsis, possibly pulmonary source Continue with empiric antibiotics We will avoid IV fluids at this time, patient is noted with increase rales Follow cultures --Lasix Acute on chronic renal injury, possibly secondary to sepsis, dehydration Patient received IV fluids BMP in am Possible fluid overload We'll give Lasix 20 mg IV twice a day, monitor blood pressure closely Monitor intake and output We will obtain 2-D echo, last echo was in 2014, EF was 55%. Anemia, history of myelodysplastic syndrome Continue with blood transfusion, follow up H&H --As Discussed with Dr. Cheema . Appreciate consultation. Status post transfusion of 2 units of PRBC April 17 --Thrombus cytopenia will monitor Seizure disorder Continue Keppra, we will change to IV form -Seizure precautions Plan for hospice consult. As discussed with hematology. His overall prognosis is poor. Discussed with power of tax associate attorney. Who is also leaning toward hospice. SCDs for DVT prophylaxis Protonix for GI prophylaxis Condition guarded, patient has a DO NOT RESUSCITATE, appropriate order has been entered Plan of care discussed with RN. Discussed with special education case manager about DC planning. Further management of the patient will be dependent on the hospital course Overall is stable enough to transfer to floor Daniel Watson MD Apr 18, 2016 15:32
--- NOTE | 2016-04-18 18:43 | HHI.PR ---
Subjective Remarks Awake and on a N/C at 3l. Good output Hgb is better. O2 sat 96. Objective Vital Signs Date Time Temp Pulse Resp B/P Pulse Ox O2 Delivery O2 Flow Rate FiO2 04/18/16 16:02 99 Nasal Cannula 4.00 04/18/16 16:00 98.6 91 26 132/62 95 04/18/16 16:00 91 04/18/16 14:00 97 04/18/16 12:00 85 04/18/16 12:00 99.5 85 18 117/60 96 04/18/16 10:00 80 04/18/16 08:00 78 04/18/16 08:00 98.9 78 22 112/55 96 04/18/16 06:00 89 04/18/16 04:00 89 04/18/16 04:00 99.1 91 18 124/61 97 04/18/16 02:00 87 04/18/16 00:00 98.4 87 22 115/58 96 04/18/16 00:00 87 04/17/16 22:00 88 04/17/16 20:51 95 Nasal Cannula 4.00 04/17/16 20:00 99.2 87 22 115/58 96 04/17/16 20:00 87 I/O 04/17/16 04/17/16 04/17/16 04/18/16 04/18/16 04/18/16 07:00 15:00 23:00 07:00 15:00 23:00 Intake Total 128 ml 918 ml 715 ml 510 ml 1035 ml Output Total 700 ml 1400 ml 1850 ml 350 ml 1350 ml Balance -572 ml -482 ml -1135 ml 160 ml -315 ml Intake Oral 320 ml 300 ml 250 ml 360 ml IV Total 128 ml 598 ml 415 ml 260 ml 675 ml Output Urine Total 700 ml 1400 ml 1850 ml 350 ml 1350 ml # Bowel Movements 0 0 Result Diagram: 04/18/1642704/18/16427 Objective Remarks Physical Exam GENERAL: This is an elderly male, pale and Chronically ill-appearing SKIN: No rashes, ecchymoses or lesions.Warm and dry. HEAD: Atraumatic. Normocephalic. No temporal or scalp tenderness. EYES: Pupils equal round and reactive.. No scleral icterus. ENT: Nose without bleeding, purulent drainage or septal hematoma. Throat without erythema, tonsillar hypertrophy or exudate. Uvula midline. Airway patent. NECK: Trachea midline. No JVD or lymphadenopathy. Supple, nontender, no meningeal signs. CARDIOVASCULAR: Regular rate and rhythm without murmurs, gallops, or rubs. RESPIRATORY: basilar Rales with mild expiratory wheezing. GASTROINTESTINAL: Abdomen soft, non-tender, nondistended. No hepato-splenomegaly , or palpable masses. MUSCULOSKELETAL: Extremities without clubbing, cyanosis. Bilateral lower extremities with trace edema. Pedal pulses 1 + bilaterally. No joint tenderness, effusion, or edema noted. No calf tenderness. Negative Homans sign bilaterally. NEUROLOGICAL: Patient opens eyes to voice, unable to assess orientation. Moves all extremities, no focal deficits noted. Assessment and Plan Assessment and Plan Physical Exam Assessment and Plan Problem List: (1) Sepsis (2) Respiratory failure (3) Myelodysplastic syndrome (4) Symptomatic anemia (5) Thrombocytopenia (6) Altered mental status (7) Pneumonia (8) Anemia (9) COPD exacerbation (10) Seizure (11) Acute kidney injury superimposed on CKD (12) Fluid overload Plan : 1. O2 at 3 L. 2. Nebs qid , duoneb. 3. Cont Rocephin and Zithro IV. 4. Chest X ray in am. 5. BMP ,CBC in am. 6. Transfer to [facility]. Tao Diaz MD Apr 18, 2016 18:43
--- NOTE | 2016-04-18 21:46 | PD.ONC.PN ---
Subjective Subjective Remarks much more alert and coughing. Objective Data Date Time Temp Pulse Resp B/P Pulse Ox O2 Delivery O2 Flow Rate FiO2 04/18/16 20:11 97 Nasal Cannula 2.00 04/18/16 20:00 99.3 76 20 130/89 93 04/18/16 18:00 92 04/18/16 16:02 99 Nasal Cannula 4.00 04/18/16 16:00 98.6 91 26 132/62 95 04/18/16 16:00 91 04/18/16 14:00 97 04/18/16 12:00 85 04/18/16 12:00 99.5 85 18 117/60 96 04/18/16 10:00 80 04/18/16 08:00 78 04/18/16 08:00 98.9 78 22 112/55 96 04/18/16 06:00 89 04/18/16 04:00 89 04/18/16 04:00 99.1 91 18 124/61 97 04/18/16 02:00 87 04/18/16 00:00 98.4 87 22 115/58 96 04/18/16 00:00 87 04/17/16 22:00 88 04/18/16 04/18/16 04/18/16 07:00 15:00 23:00 Intake Total 510 ml 1035 ml Output Total 350 ml 1350 ml Balance 160 ml -315 ml Result Diagram: 04/18/16 0428 04/18/16 0428 Laboratory Results Laboratory Tests Test 04/18/16 04:28 White Blood Count 4.2 TH/MM3 Red Blood Count 3.08 MIL/MM3 Hemoglobin 9.5 GM/DL Hematocrit 28.6 % Mean Corpuscular Volume 92.7 FL Mean Corpuscular Hemoglobin 30.7 PG Mean Corpuscular Hemoglobin 33.1 % Concent Red Cell Distribution Width 18.0 % Platelet Count 18 TH/MM3 Mean Platelet Volume 10.6 FL Sodium Level 145 MEQ/L Potassium Level 4.2 MEQ/L Chloride Level 106 MEQ/L Carbon Dioxide Level 28.5 MEQ/L Anion Gap 11 MEQ/L Blood Urea Nitrogen 61 MG/DL Creatinine 1.36 MG/DL Estimat Glomerular Filtration 52 ML/MIN Rate Random Glucose 145 MG/DL Calcium Level 8.0 MG/DL Culture Results Microbiology Date/Time Procedure Status Source Growth 04/16/16 03:00 Aerobic Blood Culture - Preliminary Resulted Blood Peripheral NO GROWTH IN 2 DAYS 04/16/16 03:00 Anaerobic Blood Culture - Preliminary Resulted Blood Peripheral NO GROWTH IN 2 DAYS 04/16/16 03:20 Aerobic Blood Culture - Preliminary Resulted Blood Peripheral NO GROWTH IN 2 DAYS 04/16/16 03:20 Anaerobic Blood Culture - Preliminary Resulted Blood Peripheral NO GROWTH IN 2 DAYS Administered Medications Medications (Trade) Dose Ordered Sig/Mireille Route PRN Reason Start Time Stop Time Status Last Admin Dose Admin IV Flush (NS Flush) 2 ml BID FLUSH 04/16/16 09:00 04/18/16 08:58 Pantoprazole Sodium 40 mg 40 mg DAILY PO 04/16/16 09:00 04/18/16 08:59 Ceftriaxone Sodium 1000 mg/ Sodium Chloride 100 ml @ 200 mls/hr Q24H IV 04/17/16 08:00 04/18/16 08:57 Metronidazole 100 ml @ 100 mls/hr Q8H IV 04/16/16 09:00 04/18/16 17:21 Levetriacetam/ Sodium Chloride (Keppra Inj/NS Inj) 105 ml @ 420 mls/hr Q12HR IV 04/16/16 09:00 04/18/16 09:06 Furosemide (Lasix Inj) 20 mg BID@09,18 IV PUSH 04/16/16 18:00 04/18/16 17:20 Chlorhexidine Gluconate (Chlorhexidine 2% Cloth) 3 pack DAILY@04 TOP 04/17/16 04:00 04/21/16 04:01 04/17/16 04:00 Objective Remarks GENERAL: disheveled and frail with frequent raspy cough SKIN: Warm and dry. HEAD: Normocephalic. EYES: No scleral icterus. No injection or drainage. NECK: Supple, trachea midline. No JVD or lymphadenopathy. LYMPHATIC: No adenopathy. CARDIOVASCULAR: Regular rate and rhythm without murmurs. RESPIRATORY: decreased sounds at the left base. GASTROINTESTINAL: Abdomen soft, non-tender, nondistended. EXTREMITIES: trace edema MUSCULOSKELETAL : poor muscle tone NEUROLOGICAL: more interactive today PSYCHIATRIC: Appropriate mood and affect; insight and judgment normal. Assessment/Plan Assessment 1: pancytopenia with worsening thrombocytopenia: suspect the fall in the plat count due to myelodysplasia and ? infection. suspect pneumonia at left base. no bleeding at this point and would no transfuse unless bleeding or plat less then or equal to 10,000. Will repeat plat count in am. Mario Cheema MD Apr 18, 2016 21:46
[2016-04-19] VITALS (14 sets, daily range): BP systolic 114–127; BP diastolic 55–61; PULSE 81–102; RESP 16–22; TEMP 97.2–99.1; O2SAT 95–99
[2016-04-19] MEDS: metroNIDAZOLE 500 MG INJ 100 ML IV SCH ×3 (01:00→17:05)
--- NOTE | 2016-04-19 03:58 | RADRPT ---
EXAM DATE/TIME: 04/19/2016 02:39 [facility] COMPARISON: CHEST SINGLE AP, November 28, 2013, 19:22. CHEST SINGLE AP, April 17, 2016, 3:44. INDICATIONS : Shortness of breath. MEDICAL HISTORY : Hypertension. Renal insufficiency, chronic. SURGICAL HISTORY : None. ENCOUNTER: Subsequent ACUITY: 4 - 6 days PAIN SCORE: Non-responsive. LOCATION: chest FINDINGS: Decreasing consolidation of the left lung base, now minimal. No large effusion seen. No pneumothorax. Heart size stable, within normal limits. Chronic healed fracture deformity with hypertrophic bone again seen proximal to midshaft of the left humerus. CONCLUSION: Near-complete resolution left base consolidation. Right lung remains clear. Robert Almonte MD on April 19, 2016 at 3:55 Board Certified Radiologist. This report was verified electronically.
[2016-04-19 04:33] LABS: HEMATOCRIT 28.2 % (39.0-51.0); MEAN CELL VOLUME 92.7 FL (80.0-100.0); MEAN CORPUSCULAR HEMOGLOBIN 30.7 PG (27.0-34.0); MEAN CORPUSCULAR HGB CONC 33.2 % (32.0-36.0); RED BLOOD COUNT 3.05 MIL/MM3 (4.50-5.90); RED CELL DISTRIBUTION WIDTH 18.5 % (11.6-17.2); WHITE BLOOD COUNT 2.9 TH/MM3 (4.0-11.0)
[2016-04-19 04:41] LABS: REVIEW FLAG FINAL
[2016-04-19 04:43] LABS: PLATELET COUNT 12 TH/MM3 (150-450)
[2016-04-19 05:06] LABS: BICARBONATE 32.8 MEQ/L (21.0-32.0); POTASSIUM 4.6 MEQ/L (3.5-5.1)
[2016-04-19] MEDS: methylPREDNISolone SOD SUCC 40 MG/1 ML VIAL IV PUSH SCH (08:06)
[2016-04-19] MEDS: PANTOPRAZOLE SOD 40 MG DELAYED RELEASE TAB PO SCH (08:07)
[2016-04-19] MEDS: cefTRIAXone INJ 1,000 MG in SODIUM CHLORIDE 0.9% INJ 100 ML IV SCH (08:07)
[2016-04-19] MEDS: FUROSEMIDE 20 MG/2 ML VIAL IV PUSH SCH (08:07)
[2016-04-19] MEDS: SODIUM CHLORIDE 0.9% FLUSH 5 ML FLUSH FLUSH SCH ×2 (08:08→21:39)
[2016-04-19] MEDS: RESP: ALBUTEROL 2.5 MG/IPRATROPIUM 0.5 MG NEB (SCH) NEB ×4 (09:09→20:34)
[2016-04-19] MEDS: levETIRAcetam INJ 500 MG in SODIUM CHLORIDE 0.9% INJ 100 ML IV SCH ×2 (10:20→21:39)
--- NOTE | 2016-04-19 11:12 | PD.ONC.PN ---
Subjective Subjective Remarks Afebrile overnight. Multiple loose stools overnight per nurse. + Cough. No bleeding. Objective Data Date Time Temp Pulse Resp B/P Pulse Ox O2 Delivery O2 Flow Rate FiO2 04/19/16 09:09 99 Nasal Cannula 2.00 04/19/16 06:00 82 04/19/16 04:00 99.0 86 18 126/60 96 04/19/16 04:00 82 04/19/16 02:00 81 04/19/16 00:00 81 04/19/16 00:00 99.1 92 22 114/58 96 04/18/16 22:00 76 04/18/16 20:11 97 Nasal Cannula 2.00 04/18/16 20:00 99.3 76 20 130/89 93 04/18/16 20:00 76 04/18/16 18:00 92 04/18/16 16:02 99 Nasal Cannula 4.00 04/18/16 16:00 98.6 91 26 132/62 95 04/18/16 16:00 91 04/18/16 14:00 97 04/18/16 12:00 85 04/18/16 12:00 99.5 85 18 117/60 96 04/19/16 04/19/16 04/19/16 07:00 15:00 23:00 Intake Total 430 ml Output Total 800 ml Balance -370 ml Result Diagram: 04/19/16 0357 04/19/16 0357 Laboratory Results Item Value Date Time Prothrombin Time 14.0 SEC H 04/19/16 1545 Prothromb Time International Ratio 1.3 RATIO 04/19/16 154 Activated Partial Thromboplast Time 31.8 SEC H 04/19/16 1545 Fibrinogen 125 mg/dL L 04/19/16 1545 Laboratory Tests Test 04/19/16 03:57 White Blood Count 2.9 TH/MM3 Red Blood Count 3.05 MIL/MM3 Hemoglobin 9.4 GM/DL Hematocrit 28.2 % Mean Corpuscular Volume 92.7 FL Mean Corpuscular Hemoglobin 30.7 PG Mean Corpuscular Hemoglobin 33.2 % Concent Red Cell Distribution Width 18.5 % Platelet Count 12 TH/MM3 Mean Platelet Volume 11.1 FL Sodium Level 146 MEQ/L Potassium Level 4.6 MEQ/L Chloride Level 106 MEQ/L Carbon Dioxide Level 32.8 MEQ/L Anion Gap 7 MEQ/L Blood Urea Nitrogen 65 MG/DL Creatinine 1.37 MG/DL Estimat Glomerular Filtration 51 ML/MIN Rate Random Glucose 167 MG/DL Calcium Level 8.1 MG/DL Imaging Studies Last 24 hours Impressions Chest X-Ray 04/19/16 0600 Signed Impressions: Service Date/Time: Tuesday, April 19, 2016 02:39 - CONCLUSION: Near- complete resolution left base consolidation. Right lung remains clear. Robert Almonte MD Administered Medications Medications (Trade) Dose Ordered Sig/Mireille Route PRN Reason Start Time Stop Time Status Last Admin Dose Admin IV Flush (NS Flush) 2 ml BID FLUSH 04/16/16 09:00 04/19/16 08:08 Pantoprazole Sodium 40 mg 40 mg DAILY PO 04/16/16 09:00 04/19/16 08:07 Ceftriaxone Sodium 1000 mg/ Sodium Chloride 100 ml @ 200 mls/hr Q24H IV 04/17/16 08:00 04/19/16 08:07 Metronidazole 100 ml @ 100 mls/hr Q8H IV 04/16/16 09:00 04/19/16 08:08 Levetriacetam/ Sodium Chloride (Keppra Inj/NS Inj) 105 ml @ 420 mls/hr Q12HR IV 04/16/16 09:00 04/19/16 10:20 Furosemide (Lasix Inj) 20 mg BID@09,18 IV PUSH 04/16/16 18:00 04/19/16 08:07 Chlorhexidine Gluconate (Chlorhexidine 2% Cloth) 3 pack DAILY@04 TOP 04/17/16 04:00 04/21/16 04:01 04/17/16 04:00 Methylprednisolone Sodium Succinate (SoluMEDROL INJ) 40 mg BID IV PUSH 04/18/16 21:00 04/19/16 08:06 Objective Remarks GENERAL: Elderly male, lying in bed, NRB mask in place. SKIN: Warm and dry. HEAD: Normocephalic. EYES: No injection or drainage. NECK: Supple, trachea midline. CARDIOVASCULAR: +S1/S2 RESPIRATORY: diminished at bases. scattered rhonchi. GASTROINTESTINAL: Abdomen soft, nondistended. EXTREMITIES: No cyanosis Assessment/Plan Assessment 70y/o male with multiple comorbidities, myelodysplasia Plan 1. myelodysplasia and infection likely causing worsening thrombocytopenia. would continue supportive care--outcome will be poor no matter what we do. 2.would not recommend transfusion today as no bleeding. can transfuse if bleeding or plt less than 10K. 3. recommend discharge to hospice care center. Attending Statement The exam, history, and the medical decision-making described in the above note were completed with the assistance of the mid-level provider. I reviewed and agree with the findings presented. I attest that I had a [id number] encounter with the patient on the same day, and personally performed and documented my assessment and findings in the medical record. The platelet count has continued to fall without clinical bleeding. He has a low fibrinogen and I believe has DIC in addition to underlying myelodysplasia. This may resolve when and if his pneumonia resolves. 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 Hospice care is appropriate. Ashley Roadrte Apr 19, 2016 11:12 Mario Cheema MD Apr 19, 2016 19:56
[2016-04-19] MEDS: AZITHROMYCIN 250 MG TAB PO SCH (12:20)
--- NOTE | 2016-04-19 12:55 | HHI.PR ---
Subjective Remarks Awake and stable on a N/C at 3l. Good output . O2 sat 98. Objective Vital Signs Date Time Temp Pulse Resp B/P Pulse Ox O2 Delivery O2 Flow Rate FiO2 04/19/16 12:00 98.2 84 20 115/56 95 04/19/16 12:00 84 04/19/16 10:00 90 04/19/16 09:09 99 Nasal Cannula 2.00 04/19/16 08:00 83 04/19/16 08:00 97.7 83 16 123/61 96 04/19/16 06:00 82 04/19/16 04:00 99.0 86 18 126/60 96 04/19/16 04:00 82 04/19/16 02:00 81 04/19/16 00:00 81 04/19/16 00:00 99.1 92 22 114/58 96 04/18/16 22:00 76 04/18/16 20:11 97 Nasal Cannula 2.00 04/18/16 20:00 99.3 76 20 130/89 93 04/18/16 20:00 76 04/18/16 18:00 92 04/18/16 16:02 99 Nasal Cannula 4.00 04/18/16 16:00 98.6 91 26 132/62 95 04/18/16 16:00 91 04/18/16 14:00 97 I/O 04/18/16 04/18/16 04/18/16 04/19/16 04/19/16 04/19/16 07:00 15:00 23:00 07:00 15:00 23:00 Intake Total 510 ml 1035 ml 500 ml 430 ml 860 ml Output Total 350 ml 1350 ml 1000 ml 800 ml 1125 ml Balance 160 ml -315 ml -500 ml -370 ml -265 ml Intake Oral 250 ml 360 ml 250 ml 300 ml 600 ml IV Total 260 ml 675 ml 250 ml 130 ml 260 ml Output Urine Total 350 ml 1350 ml 1000 ml 800 ml 1125 ml # Bowel Movements 0 1 Result Diagram: 04/19/16 0357 04/19/16 0357 Objective Remarks Physical Exam GENERAL: This is an elderly male, pale and Chronically ill-appearing SKIN: No rashes, ecchymoses or lesions.Warm and dry. HEAD: Atraumatic. Normocephalic. No temporal or scalp tenderness. EYES: Pupils equal round and reactive.. No scleral icterus. ENT: Nose without bleeding, purulent drainage or septal hematoma. Throat without erythema, tonsillar hypertrophy or exudate. Uvula midline. Airway patent. NECK: Trachea midline. No JVD or lymphadenopathy. Supple, nontender, no meningeal signs. CARDIOVASCULAR: Regular rate and rhythm without murmurs, gallops, or rubs. RESPIRATORY: Few basilar Rales with expiratory wheezing. GASTROINTESTINAL: Abdomen soft, non-tender, nondistended. No hepato-splenomegaly , or palpable masses. MUSCULOSKELETAL: Extremities without clubbing, cyanosis. Mild leg edema. Pedal pulses 1 + bilaterally. No joint tenderness, effusion, or edema noted. No calf tenderness. Negative Homans sign bilaterally. NEUROLOGICAL: Patient opens eyes to voice, unable to assess orientation. Moves all extremities, no focal deficits noted. Assessment and Plan Assessment and Plan Physical Exam Assessment and Plan Problem List: (1) Sepsis (2) Respiratory failure (3) Myelodysplastic syndrome (4) Symptomatic anemia (5) Thrombocytopenia (6) Altered mental status (7) Pneumonia (8) Anemia (9) COPD exacerbation (10) Seizure (11) Acute kidney injury superimposed on CKD (12) Fluid overload Plan : 1. O2 at 2 L. 2. Nebs qid , duoneb. 3. Cont Rocephin and D/C Zithro 4. CBC,BMP in am 5. Taper steroids to prednisone 20 mg bid 6. Transfer to [facility]. 7. Change lasix to 20 mg PO bid. Tao Diaz MD Apr 19, 2016 12:55
[2016-04-19 16:30] LABS: APTT (PATIENT) 31.8 SEC (24.3-30.1); INTERNATIONAL NORMALIZED RATIO 1.3 RATIO
--- NOTE | 2016-04-19 16:30 | HHI.PR ---
Subjective Remarks pt is alert and oriented to place and person dont know why he is exactly here feels tired and weak No pain No nausea vomiting no shortness of breath no other complaint not a good historian ROS for 10 point system is unremarkable otherwise Objective Objective Results - Vital Signs Date Time Temp Pulse Resp B/P Pulse Ox O2 Delivery O2 Flow Rate FiO2 04/19/16 13:18 99 04/19/16 12:52 97.6 94 20 127/55 97 04/19/16 12:00 98.2 84 20 115/56 95 04/19/16 12:00 84 04/19/16 10:00 90 04/19/16 09:09 99 Nasal Cannula 2.00 04/19/16 08:00 83 04/19/16 08:00 97.7 83 16 123/61 96 04/19/16 06:00 82 04/19/16 04:00 99.0 86 18 126/60 96 04/19/16 04:00 82 04/19/16 02:00 81 04/19/16 00:00 81 04/19/16 00:00 99.1 92 22 114/58 96 04/18/16 22:00 76 04/18/16 20:11 97 Nasal Cannula 2.00 04/18/16 20:00 99.3 76 20 130/89 93 04/18/16 20:00 76 04/18/16 18:00 92 I/O 04/18/16 04/18/16 04/18/16 04/19/16 04/19/16 04/19/16 07:00 15:00 23:00 07:00 15:00 23:00 Intake Total 510 ml 1035 ml 500 ml 430 ml 2780 ml Output Total 350 ml 1350 ml 1000 ml 800 ml 1525 ml Balance 160 ml -315 ml -500 ml -370 ml 1255 ml Intake Oral 250 ml 360 ml 250 ml 300 ml 2520 ml IV Total 260 ml 675 ml 250 ml 130 ml 260 ml Output Urine Total 350 ml 1350 ml 1000 ml 800 ml 1525 ml # Bowel Movements 0 2 Result Diagram: 04/19/16 0357 04/19/16 0357 Imaging Last Impressions Chest X-Ray 04/16/16 0300 Signed Impressions: Service Date/Time: Saturday, April 16, 2016 03:13 - CONCLUSION: Left basilar opacity is stable and felt to represent scarring and atelectasis. Javier Clarke MD Other Results Laboratory Tests Test 04/19/16 03:57 White Blood Count 2.9 Red Blood Count 3.05 Hemoglobin 9.4 Hematocrit 28.2 Mean Corpuscular Volume 92.7 Mean Corpuscular Hemoglobin 30.7 Mean Corpuscular Hemoglobin 33.2 Concent Red Cell Distribution Width 18.5 Platelet Count 12 Mean Platelet Volume 11.1 Sodium Level 146 Potassium Level 4.6 Chloride Level 106 Carbon Dioxide Level 32.8 Anion Gap 7 Blood Urea Nitrogen 65 Creatinine 1.37 Estimat Glomerular Filtration 51 Rate Random Glucose 167 Calcium Level 8.1 Date/Time Procedure Status Source Growth 04/16/16 03:20 Aerobic Blood Culture - Preliminary Resulted Blood Peripheral NO GROWTH IN 3 DAYS 04/16/16 03:20 Anaerobic Blood Culture - Preliminary Resulted Blood Peripheral NO GROWTH IN 3 DAYS Physical Exam Physical Exam GENERAL: This is an elderly male, currently on nasal cannula oxygen. Chronically weak and ill-appearing SKIN: No rashes, ecchymoses or lesions. Cool and dry. HEAD: Atraumatic. Normocephalic. No temporal or scalp tenderness. EYES: Pupils equal round and reactive. Extraocular motions intact. No scleral icterus. No injection or drainage. ENT: Nose without bleeding, purulent drainage or septal hematoma. Throat without erythema, tonsillar hypertrophy or exudate. Uvula midline. Airway patent. NECK: Trachea midline. No JVD or lymphadenopathy. Supple, nontender, no meningeal signs. CARDIOVASCULAR: Regular rate and rhythm without murmurs, gallops, or rubs. RESPIRATORY: coarse rhonchi as well as by basilar Rales with mild expiratory wheezing. GASTROINTESTINAL: Abdomen soft, non-tender, nondistended. No hepato-splenomegaly , or palpable masses. No guarding. MUSCULOSKELETAL: Extremities without clubbing, cyanosis. Bilateral lower extremities with trace edema. Pedal pulses 2+ bilaterally. No joint tenderness , effusion, or edema noted. No calf tenderness. Negative Homans sign bilaterally. NEUROLOGICAL: Patient opens eyes to voice, unable to assess orientation. Moves all extremities, no focal deficits noted. A/P Assessment and Plan (1) Sepsis (2) Respiratory failure (3) Myelodysplastic syndrome (4) Symptomatic anemia (5) Thrombocytopenia (6) Altered mental status (7) Pneumonia (8) Anemia (9) COPD exacerbation (10) Seizure (11) Acute kidney injury superimposed on CKD (12) Fluid overload Plan 70-year-old elderly male from a local correction, history of myelodysplastic syndrome, frequent blood transfusions, seizure disorder. Patient was brought in via EMS after he was found unresponsive, was hypoxic sats 80%. He was found severely anemic, hemoglobin 5.3, hematocrit 17.2. Chest x-ray showed left basilar opacity. Was noted with acute on chronic renal injury. Acute respiratory failure, history of COPD, asthma -Continue with oxygen to keep oxygen saturation above 92% -Labs reviewed -On by mouth steroid -Pulmonary consultation appreciated -Patient is a DO NOT RESUSCITATE Sepsis, possibly pulmonary source Continue with empiric antibiotics We will avoid IV fluids at this time, patient is noted with increase rales Follow cultures so far negative --Lasix Acute on chronic renal injury, possibly secondary to sepsis, dehydration Patient received IV fluids Stable renal function Possible fluid overload We'll continue Lasix, monitor blood pressure closely Monitor intake and output We will obtain 2-D echo, last echo was in 2014, EF was 55%. Anemia, history of myelodysplastic syndrome Continue with blood transfusion, follow up H&H --As Discussed with Dr. Cheema . Appreciate consultation. Status post transfusion of 2 units of PRBC April 17 --Thrombus cytopenia will monitor urine. Count 11.1 today no sign of bleeding Seizure disorder Continue Keppra, we will change to IV form -Seizure precautions Hospice consultation has been called in. Dr. Veloz in hospice, who sent papers to her power of patent prosecution attorney. Awaiting for a paper to come back to be admitted to hospice center. His overall prognosis is poor. Discussed before with power of patent prosecution attorney. Who also agreeing for hospice. Waiting for paperwork to be back SCDs for DVT prophylaxis Protonix for GI prophylaxis Condition guarded, patient has a DO NOT RESUSCITATE, appropriate order has been entered Plan of care discussed with oncology PA. Further management of the patient will be dependent on the hospital course Seen on the floor floor Daniel Watson MD Apr 19, 2016 16:30
[2016-04-19] MEDS: FUROSEMIDE 20 MG TAB PO SCH (17:05)
[2016-04-19] MEDS: predniSONE 20 MG TAB PO SCH (21:39)
[2016-04-20] VITALS (9 sets, daily range): BP systolic 104–116; BP diastolic 54–68; PULSE 66–113; RESP 15–18; TEMP 96.2–98.5; O2SAT 94–98
[2016-04-20] MEDS: metroNIDAZOLE 500 MG INJ 100 ML IV SCH ×3 (01:15→17:27)
[2016-04-20] MEDS: CHLORHEXIDINE GLUCONATE 2 % 1 PACK (2 CLOTHS)(taper/protocol) TOP SCH (03:38)
[2016-04-20 06:33] LABS: HEMATOCRIT 26.4 % (39.0-51.0); MEAN CELL VOLUME 92.8 FL (80.0-100.0); MEAN CORPUSCULAR HEMOGLOBIN 30.5 PG (27.0-34.0); MEAN CORPUSCULAR HGB CONC 32.9 % (32.0-36.0); RED BLOOD COUNT 2.84 MIL/MM3 (4.50-5.90); RED CELL DISTRIBUTION WIDTH 17.3 % (11.6-17.2); WHITE BLOOD COUNT 2.8 TH/MM3 (4.0-11.0)
[2016-04-20 06:45] LABS: HEMO FLAGS AUTO DIFF
[2016-04-20 06:47] LABS: PLATELET COUNT 10 TH/MM3 (150-450)
[2016-04-20] MEDS: RESP: ALBUTEROL 2.5 MG/IPRATROPIUM 0.5 MG NEB (SCH) NEB ×3 (08:27→15:51)
[2016-04-20 08:30] LABS: C. DIFF EPI 027 PRESUMPTIVE NEGATIVE (NEGATIVE); C. DIFF TOXIN PCR NEGATIVE (NEGATIVE)
[2016-04-20] MEDS: cefTRIAXone INJ 1,000 MG in SODIUM CHLORIDE 0.9% INJ 100 ML IV SCH (08:41)
[2016-04-20] MEDS: PANTOPRAZOLE SOD 40 MG DELAYED RELEASE TAB PO SCH (08:42)
[2016-04-20] MEDS: predniSONE 20 MG TAB PO SCH (08:42)
[2016-04-20] MEDS: FUROSEMIDE 20 MG TAB PO SCH ×2 (08:42→17:27)
[2016-04-20] MEDS: AZITHROMYCIN 250 MG TAB PO SCH (08:42)
[2016-04-20] MEDS: SODIUM CHLORIDE 0.9% FLUSH 5 ML FLUSH FLUSH SCH (09:00)
--- NOTE | 2016-04-20 10:03 | PD.ONC.PN ---
Subjective Subjective Remarks Afebrile overnight. Patient sitting up in bed eating breakfast on approach. He does not seem interested in conversing. He denies complaints. Per RN he has had no bleeding. Objective Data Date Time Temp Pulse Resp B/P Pulse Ox O2 Delivery O2 Flow Rate FiO2 04/20/16 08:30 96.9 73 18 116/67 96 04/20/16 08:27 98 Nasal Cannula 2.00 04/20/16 04:00 97.0 69 15 113/56 96 04/20/16 00:00 97.5 73 15 106/54 98 04/19/16 20:35 87 04/19/16 20:34 96 Nasal Cannula 04/19/16 20:00 98.2 93 18 114/55 95 04/19/16 17:36 97.2 102 22 121/61 95 04/19/16 13:18 99 04/19/16 12:52 97.6 94 20 127/55 97 04/19/16 12:00 98.2 84 20 115/56 95 04/19/16 12:00 84 04/19/16 10:00 90 04/20/16 04/20/16 04/20/16 07:00 15:00 23:00 Intake Total 380 ml Output Total 400 ml Balance -20 ml Result Diagram: 04/20/16 0602 04/19/16 0357 Laboratory Results Laboratory Tests Test 04/19/16 04/20/16 04/20/16 04/20/16 15:45 04:00 06:02 07:30 Prothrombin Time 14.0 SEC Prothromb Time International 1.3 RATIO Ratio Activated Partial 31.8 SEC Thromboplast Time Fibrinogen 125 mg/dL Stool C. difficile Toxin (PCR) NEGATIVE Stl C. difficile Toxin PRESUMPTIVE Epiderm 027 NEGATIVE White Blood Count 2.8 TH/MM3 Red Blood Count 2.84 MIL/MM3 Hemoglobin 8.7 GM/DL Hematocrit 26.4 % Mean Corpuscular Volume 92.8 FL Mean Corpuscular Hemoglobin 30.5 PG Mean Corpuscular Hemoglobin 32.9 % Concent Red Cell Distribution Width 17.3 % Platelet Count 10 TH/MM3 Mean Platelet Volume 11.0 FL Neutrophils (%) (Auto) % Lymphocytes (%) (Auto) % Monocytes (%) (Auto) % Eosinophils (%) (Auto) % Basophils (%) (Auto) % Neutrophils # (Auto) TH/MM3 Lymphocytes # (Auto) TH/MM3 Monocytes # (Auto) TH/MM3 Eosinophils # (Auto) TH/MM3 Basophils # (Auto) TH/MM3 CBC Comment AUTO DIFF Blood Bank Comment Administered Medications Medications (Trade) Dose Ordered Sig/Mireille Route PRN Reason Start Time Stop Time Status Last Admin Dose Admin IV Flush (NS Flush) 2 ml BID FLUSH 04/16/16 09:00 04/19/16 08:08 Pantoprazole Sodium 40 mg 40 mg DAILY PO 04/16/16 09:00 04/20/16 08:42 Ceftriaxone Sodium 1000 mg/ Sodium Chloride 100 ml @ 200 mls/hr Q24H IV 04/17/16 08:00 04/20/16 08:41 Metronidazole 100 ml @ 100 mls/hr Q8H IV 04/16/16 09:00 04/20/16 01:15 Levetriacetam/ Sodium Chloride (Keppra Inj/NS Inj) 105 ml @ 420 mls/hr Q12HR IV 04/16/16 09:00 04/19/16 21:39 Chlorhexidine Gluconate (Chlorhexidine 2% Cloth) 3 pack DAILY@04 TOP 04/17/16 04:00 04/21/16 04:01 04/20/16 03:38 Azithromycin (Zithromax) 250 mg DAILY PO 04/19/16 09:00 04/20/16 08:42 Prednisone (Deltasone) 20 mg BID PO 04/19/16 21:00 04/20/16 08:42 Furosemide (Lasix) 20 mg BID@,18 PO 04/19/16 18:00 04/20/16 08:42 Objective Remarks GENERAL: Elderly male, lying in bed eating breakfast. SKIN: Warm and dry. HEAD: Normocephalic. EYES: No injection or drainage. NECK: Supple, trachea midline. CARDIOVASCULAR: +S1/S2 RESPIRATORY: diminished at bases. scattered rhonchi. GASTROINTESTINAL: Abdomen soft, nondistended. EXTREMITIES: No cyanosis Assessment/Plan Assessment 70y/o male with multiple comorbidities, myelodysplasia Plan 1. Thrombocytopenia worsened to 10,000 today. We will give 1 unit of platelets. Continue supportive care--outcome will be poor no matter what we do. 2. Await input from palliative team; from hematology standpoint we recommend discharge to hospice care center. Attending Statement The exam, history, and the medical decision-making described in the above note were completed with the assistance of the mid-level provider. I reviewed and agree with the findings presented. I attest that I had a [id number] encounter with the patient on the same day, and personally performed and documented my assessment and findings in the medical record. clinically he is better and more interactive. lung sounds clear and suspect pneumonia improving with antibiotics. low plat due to myelodysplasia and DIC. Give the plat count of 10,000 will transfuse single unit donor pack in spite of no bleeding. nothing else to do. Anju Cooley Apr 20, 2016 10:03 Mario Cheema MD Apr 20, 2016 14:35
[2016-04-20 10:04] LABS: POLYS (SEG NEUTROPHILS) 70 % (16-70); WBC DIFF SAMPLE 100
[2016-04-20 10:05] LABS: KERATOCYTES OCC (NORMAL); OVALOCYTES 1+ (NORMAL); PLATELET ESTIMATE SMEAR RARE (NORMAL); PLATELET MORPHOLOGY NORMAL (NORMAL); SCAN/DIFF FINAL DIFF MANUAL
[2016-04-20] MEDS: levETIRAcetam INJ 500 MG in SODIUM CHLORIDE 0.9% INJ 100 ML IV SCH (10:41)
--- NOTE | 2016-04-20 11:19 | HHI.PR ---
Subjective Remarks pt is alert and oriented to place and person dont know why he is exactly here feels tired and weak No pain No nausea vomiting no shortness of breath no other complaint not a good historian ROS for 10 point system is unremarkable otherwise Objective Objective Results - Vital Signs Date Time Temp Pulse Resp B/P Pulse Ox O2 Delivery O2 Flow Rate FiO2 04/20/16 08:30 96.9 73 18 116/67 96 04/20/16 08:27 98 Nasal Cannula 2.00 04/20/16 04:00 97.0 69 15 113/56 96 04/20/16 00:00 97.5 73 15 106/54 98 04/19/16 20:35 87 04/19/16 20:34 96 Nasal Cannula 04/19/16 20:00 98.2 93 18 114/55 95 04/19/16 17:36 97.2 102 22 121/61 95 04/19/16 13:18 99 04/19/16 12:52 97.6 94 20 127/55 97 04/19/16 12:00 98.2 84 20 115/56 95 04/19/16 12:00 84 I/O 04/19/16 04/19/16 04/19/16 04/20/16 04/20/16 04/20/16 07:00 15:00 23:00 07:00 15:00 23:00 Intake Total 430 ml 2780 ml 1100 ml 380 ml Output Total 800 ml 1525 ml 950 ml 400 ml Balance -370 ml 1255 ml 150 ml -20 ml Intake Oral 300 ml 2520 ml 960 ml 240 ml IV Total 130 ml 260 ml 140 ml 140 ml Output Urine Total 800 ml 1525 ml 950 ml 400 ml # Bowel Movements 2 1 Result Diagram: 04/20/16 0602 04/19/16 0357 Imaging Last Impressions Chest X-Ray 04/16/16 0300 Signed Impressions: Service Date/Time: Saturday, April 16, 2016 03:13 - CONCLUSION: Left basilar opacity is stable and felt to represent scarring and atelectasis. Javier Clarke MD Other Results Laboratory Tests Test 04/19/16 04/20/16 04/20/16 04/20/16 15:45 04:00 06:02 07:30 Prothrombin Time 14.0 Prothromb Time International 1.3 Ratio Activated Partial 31.8 Thromboplast Time Fibrinogen 125 Stool C. difficile Toxin (PCR) NEGATIVE Stl C. difficile Toxin PRESUMPTIVE Epiderm 027 NEGATIVE White Blood Count 2.8 Red Blood Count 2.84 Hemoglobin 8.7 Hematocrit 26.4 Mean Corpuscular Volume 92.8 Mean Corpuscular Hemoglobin 30.5 Mean Corpuscular Hemoglobin 32.9 Concent Red Cell Distribution Width 17.3 Platelet Count 10 Mean Platelet Volume 11.0 Neutrophils (%) (Auto) Lymphocytes (%) (Auto) Monocytes (%) (Auto) Eosinophils (%) (Auto) Basophils (%) (Auto) Neutrophils # (Auto) Lymphocytes # (Auto) Monocytes # (Auto) Eosinophils # (Auto) Basophils # (Auto) CBC Comment AUTO DIFF Differential Total Cells 100 Counted Neutrophils % (Manual) 70 Lymphocytes % 20 Monocytes % 10 Neutrophils # (Manual) 2.0 Differential Comment FINAL DIFF MANUAL Platelet Estimate RARE Platelet Morphology Comment NORMAL Ovalocytes 1+ Keratocytes OCC Blood Bank Comment Date/Time Procedure Status Source Growth 04/16/16 03:20 Aerobic Blood Culture - Preliminary Resulted Blood Peripheral NO GROWTH IN 4 DAYS 04/16/16 03:20 Anaerobic Blood Culture - Preliminary Resulted Blood Peripheral NO GROWTH IN 4 DAYS Physical Exam Physical Exam GENERAL: This is an elderly male, currently on nasal cannula oxygen. Chronically weak and ill-appearing SKIN: No rashes, ecchymoses or lesions. Cool and dry. HEAD: Atraumatic. Normocephalic. No temporal or scalp tenderness. EYES: Pupils equal round and reactive. Extraocular motions intact. No scleral icterus. No injection or drainage. ENT: Nose without bleeding, purulent drainage or septal hematoma. Throat without erythema, tonsillar hypertrophy or exudate. Uvula midline. Airway patent. NECK: Trachea midline. No JVD or lymphadenopathy. Supple, nontender, no meningeal signs. CARDIOVASCULAR: Regular rate and rhythm without murmurs, gallops, or rubs. RESPIRATORY: coarse rhonchi as well as by basilar Rales with mild expiratory wheezing. GASTROINTESTINAL: Abdomen soft, non-tender, nondistended. No hepato-splenomegaly , or palpable masses. No guarding. MUSCULOSKELETAL: Extremities without clubbing, cyanosis. Bilateral lower extremities with trace edema. Pedal pulses 2+ bilaterally. No joint tenderness , effusion, or edema noted. No calf tenderness. Negative Homans sign bilaterally. NEUROLOGICAL: Patient opens eyes to voice, unable to assess orientation. Moves all extremities, no focal deficits noted. A/P Assessment and Plan (1) Sepsis (2) Respiratory failure (3) Myelodysplastic syndrome (4) Symptomatic anemia (5) Thrombocytopenia (6) Altered mental status (7) Pneumonia (8) Anemia (9) COPD exacerbation (10) Seizure (11) Acute kidney injury superimposed on CKD (12) Fluid overload Plan 70-year-old elderly male from a local [facility], history of myelodysplastic syndrome, frequent blood transfusions, seizure disorder. Patient was brought in via EMS after he was found unresponsive, was hypoxic sats 80%. He was found severely anemic, hemoglobin 5.3, hematocrit 17.2. Chest x-ray showed left basilar opacity. Was noted with acute on chronic renal injury. Acute respiratory failure, history of COPD, asthma -Continue with oxygen to keep oxygen saturation above 92% -Labs reviewed -On by mouth steroid -Pulmonary consultation appreciated -Patient is a DO NOT RESUSCITATE Sepsis, possibly pulmonary source Continue with empiric antibiotics We will avoid IV fluids at this time, patient is noted with increase rales Follow cultures so far negative --Lasix Acute on chronic renal injury, possibly secondary to sepsis, dehydration Patient received IV fluids Stable renal function Possible fluid overload We'll continue Lasix, monitor blood pressure closely Monitor intake and output We will obtain 2-D echo, last echo was in 2014, EF was 55%. Anemia, history of myelodysplastic syndrome Continue with blood transfusion, follow up H&H --As Discussed with Dr. Cheema . Appreciate consultation. Status post transfusion of 2 units of PRBC April 17 --Thrombus cytopenia will monitor urine. Count 10 today no sign of bleeding. No sign of bleeding Seizure disorder Continue Keppra, we will change to IV form -Seizure precautions Hospice consultation has been called in. Discussed with Roselia in hospice, who sent papers to her power of attorney law clerk. Awaiting for a paper to come back to be admitted to hospice center. His overall prognosis is poor. Discussed before with power of attorney law clerk. Who also agreeing for hospice. Waiting for paperwork to be back SCDs for DVT prophylaxis Protonix for GI prophylaxis Condition guarded, patient has a DO NOT RESUSCITATE, appropriate order has been entered Plan of care discussed with oncology PA. Further management of the patient will be dependent on the hospital course Awaiting for paperwork to come back to center the hospice care center Condition guarded overall prognosis poor Daniel Watson MD Apr 20, 2016 11:19
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
== END 2016-04-20 18:35 | DRG 871 ==
LOC: NEPE 02:51 → NEDA 06:07 → NEDH 10:22 → HIME 15:20 → HOCB 04-19 12:52
PROVIDERS: ADMIT Specialist; ATTEND Specialist
DX: A41.9 Sepsis, unspecified organism (principal); J96.02 Acute respiratory failure with hypercapnia; N17.9 Acute kidney failure, unspecified; G93.40 Encephalopathy, unspecified; J96.01 Acute respiratory failure with hypoxia; K50.10 Crohn's disease of large intestine without complications; J18.9 Pneumonia, unspecified organism; D69.6 Thrombocytopenia, unspecified; E87.70 Fluid overload, unspecified; J44.0 Chronic obstructive pulmonary disease with (acute) lower respiratory infection; J98.11 Atelectasis; N18.3 Chronic kidney disease, stage 3 (moderate); D46.9 Myelodysplastic syndrome, unspecified; G40.909 Epilepsy, unspecified, not intractable, without status epilepticus; E78.5 Hyperlipidemia, unspecified; I12.9 Hypertensive chronic kidney disease with stage 1 through stage 4 chronic kidney disease, or unspecified chronic kidney disease; E86.0 Dehydration; I51.7 Cardiomegaly; J45.909 Unspecified asthma, uncomplicated; K21.9 Gastro-esophageal reflux disease without esophagitis; Z51.5 Encounter for palliative care; Z66 Do not resuscitate
CPT/HCPCS: 36430; 36600; 71010; 76937; 80048; 82805; 83605; 83735; 83880; 84484; 85007; 85025; 85027; 85384; 85610; 85730; 86850; 86900; 86901; 86902; 86920; 86921; 86922; 87040; 87493; 87641; 93005; 93306; 94002; 94640; 94664; 96374; 96375; J0456; J0696; J1940; J1953; J2920; J7050; J7512; P9016; P9035